=== PATIENT | female | born 1985 | race Caucasian/White ===

== ENCOUNTER 2023-06-29 13:29 | Emergency (ER) | payer OTHER, SELFPAY ==
[2023-06-29 13:49] VITALS: BP 165/74; PULSE 64; RESP 16; TEMP 36.6; O2SAT 99; BMI 31.3
--- NOTE | 2023-06-29 14:09 | DI.RAD.S_ITS ---
PROCEDURE: XR ACUTE ABDOMEN SERIES INDICATIONS: abd pain, ? foreign body. TECHNIQUE: One view chest and two views of the abdomen were acquired. COMPARISON: None. FINDINGS: Surgical changes and devices: None. Chest: Lungs are clear. Heart size is normal. No pleural effusions. No pneumoperitoneum. Abdomen: Scattered fecal residue. No dilated loops of small bowel seen. No suspicious calcifications. Visualized solid organ contours appear normal. Bones: No suspicious bony lesions. IMPRESSION: No radiopaque foreign body. Dictated by: Tera Bishop M.D. on 06/29/2023 at 14:50 Approved by: Tera Bishop M.D. on 06/29/2023 at 14:51
[2023-06-29 14:44] LABS: Add Manual Diff / Slide Review NO; Basophils Absolute Auto 100 /uL (0-100); Basophils Percent Auto 0.9 % (0-2); Eosinophils Absolute Auto 300 /uL (0-450); Eosinophils Percent Auto 3.3 % (2-4); Hematocrit 40.2 % (36-46); Hemoglobin 13.9 g/dL (12.0-16.0); Lymphocytes Absolute Auto 1900 /uL (1100-4500); Lymphocytes Percent Auto 21.9 % (25-40); Mean Corpuscular HGB Conc 34.5 % (30-36); Mean Corpuscular Hemoglobin 31.4 PG (26-34); Mean Corpuscular Volume 91.1 fL (80-100); Monocytes Absolute Auto 500 /uL (0-900); Monocytes Percent Auto 5.8 % (3-14); Neutrophils Absolute Auto 6000 /uL (1500-7000); Neutrophils Percent Auto 68.1 % (50-75); Platelet Count 212 X10^3/uL (150-400); Red Blood Cell Count 4.41 X10^6/uL (4.0-5.2); Red Cell Distribution Width 13.3 % (11.6-14.8); White Blood Cell Count 8.8 X10^3/uL (4.5-11.0)
[2023-06-29 14:53] LABS: Alanine Aminotransferase 18 IU/L (<35); Albumin 4.3 g/dL (3.5-5.0); Albumin Globulin Ratio 1.4 (1.0-2.8); Alkaline Phosphatase 65 U/L (38-126); Aspartate Aminotransferase 25 IU/L (14-36); BUN Creatinine Ratio 24.1 (6-22); Bilirubin Total 0.3 mg/dL (0.2-1.3); Blood Urea Nitrogen 19 mg/dL (7-17); Calcium 9.4 mg/dL (8.4-10.2); Carbon Dioxide 24 mmol/L (22-32); Chloride 106 mmol/L (98-107); Estimated Glomerular Filt Rate > 60 mL/min (>60); Globulin 3.1 g/dL (1.7-4.1); Glucose 90 mg/dL (70-100); HEMOLYSIS 20 (0-50); Lipase 75 U/L (23-300); Potassium 3.9 mmol/L (3.4-5.1); Sodium 138 mmol/L (137-145); Total Protein 7.4 g/dL (6.3-8.2)
--- NOTE | 2023-06-29 17:06 | DI.CT.S_ITS ---
PROCEDURE: CT ABDOMEN PELVIS W CON INDICATIONS: Abdominal pain after swallowing earings TECHNIQUE: After the administration of intravenous contrast, axial sections acquired from the lung bases to the pubic symphysis. Coronal and sagittal reformats were performed. For radiation dose reduction, the following was used: automated exposure control, adjustment of mA and/or kV according to patient size. COMPARISON: None. FINDINGS: Image quality: Excellent. Lung bases: Unremarkable. Heart: No significant findings. ABDOMEN: Liver: Unremarkable. Gallbladder: Unremarkable Biliary ducts: Unremarkable. Pancreas: Unremarkable. Spleen: No splenomegaly Adrenal Glands: Unremarkable. Kidneys and Ureters: Kidneys are symmetric in size and enhancement, and there is no obstructive uropathy. No perinephric inflammatory changes. Ureters are normal in course and caliber. Stomach and Bowel: Stomach, small bowel loops, and colon are unremarkable. Normal appendix. No radiodense foreign bodies identified. Peritoneum: No abnormal intraperitoneal fluid. No free air. Ventral Wall: There is a fat-containing umbilical hernia without acute inflammation. Abdominal Nodes: No retroperitoneal or mesenteric adenopathy by size criteria. Vessels: Aorta and inferior vena cava are normal in size. PELVIS: Pelvic Organs: Unremarkable. Bladder: Unremarkable. Pelvic Nodes: No enlarged lymph nodes. Miscellaneous: No hernias are seen. Bones: Unremarkable. IMPRESSION: CT abdomen and pelvis without acute abnormalities to explain patient's symptoms. No hyperdense foreign bodies identified in the abdomen or pelvis. Dictated by: Fito Francois M.D. on 06/29/2023 at 17:27 Approved by: Fito Francois M.D. on 06/29/2023 at 17:29
--- NOTE | 2023-06-29 17:08 | ED.ABDPAIN ---
HPI - Abdominal Pain <Dinesh Castillo PA-C - Last Filed: 06/29/23 18:00> General Chief Complaint: Abdominal Pain Stated Complaint: swallowed stud earings T-7/abd pain T-2 Time Seen by Provider: 06/29/23 16:56 Source: patient Mode of arrival: Ambulatory History of Present Illness HPI narrative: This is a 37-year-old female presents emergency department after swallowing 2 earrings proximally 5 days ago. Two days ago she began to feel some episodes of sharp intermittent abdominal pain as well as bloating causing her to come to the emergency department as well as some nausea. Denies any vomiting, diarrhea, pelvic symptoms, or any other concerning signs or symptoms. Related Data Home Medications Medication Instructions Recorded Confirmed levothyroxine 88 mcg tablet 88 mcg PO DAILY 06/29/23 06/29/23 venlafaxine 150 mg 150 mg PO DAILY 06/29/23 06/29/23 capsule,extended release 24 hr Allergies Allergy/AdvReac Type Severity Reaction Status Date / Time No Known Drug Allergies Allergy Verified 06/29/23 13:52 Review of Systems <Dinesh Castillo PA-C - Last Filed: 06/29/23 18:00> Review of Systems Narrative: GENERAL: Denies chills, fatigue, malaise, fever, sweats. HEENT: Denies sinus pain, ear pain, sore throat, difficulty swallowing, dizziness. RESPIRATORY: Denies dyspnea, cough, wheezing, hemoptysis, sputum. CARDIOVASCULAR: Denies chest pain, palpitations, orthopnea, edema, GASTROINTESTINAL: Reports nausea and abdominal pain, denies vomiting diarrhea, constipation, melena. : Denies dysuria, frequency, incontinence, hematuria, urinary retention. MUSCULOSKELETAL: denies weakness, joint pain, or bony pain SKIN: Denies rash, skin lesions, or other NEUROLOGIC: Denies weakness, headache, numbness, change in speech, confusion, seizures, incoordination. PSYCHIATRIC: No concerning psychosocial issues. 12 point review of systems is negative except for those stated above Patient History <Dinesh Castillo PA-C - Last Filed: 06/29/23 18:00> Social History Smoking Status: Never smoker Smoking Status: Never smoker alcohol intake frequency: other Substance Use Type: marijuana Exam <OLIVA Perez Last Filed: 06/29/23 18:00> Narrative Exam Narrative: GENERAL: Well-developed patient, in mild distress. HEAD: Atraumatic. Normocephalic. EYES: Pupils equal round and reactive. Extraocular motions intact. No scleral icterus. No injection or drainage. ENT: Nose without bleeding, purulent drainage. Throat without erythema, tonsillar hypertrophy or exudate. Airway patent. NECK: Trachea midline. Non tender CARDIOVASCULAR: Regular rate and rhythm without murmurs, gallops, or rubs. RESPIRATORY: Clear to auscultation. Breath sounds equal bilaterally. No wheezes, rales, or rhonchi. GASTROINTESTINAL: Generalized tenderness to palpation, nondistended EXTREMITIES: No edema or joint tenderness. BACK: Nontender without deformity or crepitance. No flank tenderness. NEURO: AOx3. SKIN: No rash or erythema of visible areas Initial Vital Signs Initial Vital Signs: Vital Signs Temperature 98 F 06/29/23 13:49 Pulse Rate 64 06/29/23 13:49 Respiratory Rate 16 06/29/23 13:49 Blood Pressure 165/74 H 06/29/23 13:49 Pulse Oximetry 99 06/29/23 13:49 Oxygen Delivery Method Room Air 06/29/23 13:49 <DO Josue Srinivasan Last Filed: 06/30/23 09:01> Initial Vital Signs Initial Vital Signs: Vital Signs Temperature 98 F 06/29/23 13:49 Pulse Rate 64 06/29/23 13:49 Respiratory Rate 16 06/29/23 13:49 Blood Pressure 165/74 H 06/29/23 13:49 Pulse Oximetry 99 06/29/23 13:49 Oxygen Delivery Method Room Air 06/29/23 13:49 Course <Dinesh Castillo PA-C - Last Filed: 06/29/23 18:00> Orders Ordered: Discontinued Medications Ondansetron HCl (Ondansetron 4 Mg Odt) 4 mg PO NOW PRN PRN Reason: Nausea And Vomiting Ondansetron HCl (Ondansetron 4 Mg/2 Ml Inj) 4 mg IV NOW PRN PRN Reason: Nausea And Vomiting Vital Signs Vital signs: Vital Signs - 8 hr 06/29/23 13:49 Temperature 98 F Pulse Rate 64 Respiratory Rate 16 Blood Pressure 165/74 H Pulse Oximetry 99 Oxygen Delivery Method Room Air <DO Josue Srinivasan Last Filed: 06/30/23 09:01> Orders Ordered: Discontinued Medications Ondansetron HCl (Ondansetron 4 Mg Odt) 4 mg PO NOW PRN PRN Reason: Nausea And Vomiting Ondansetron HCl (Ondansetron 4 Mg/2 Ml Inj) 4 mg IV NOW PRN PRN Reason: Nausea And Vomiting Vital Signs Vital signs: Vital Signs - 8 hr 06/29/23 13:49 Temperature 98 F Pulse Rate 64 Respiratory Rate 16 Blood Pressure 165/74 H Pulse Oximetry 99 Oxygen Delivery Method Room Air MDM - Abdominal Pain <Dinesh Castillo PA-C - Last Filed: 06/29/23 18:00> Lab Data 06/29/23 14:25 06/29/23 14:25 Labs: Lab Results 06/29/23 Range/Units 14:25 WBC 8.8 (4.5-11.0) X10^3/uL RBC 4.41 (4.0-5.2) X10^6/uL Hgb 13.9 (12.0-16.0) g/dL Hct 40.2 (36-46) % MCV 91.1 (80-100) fL MCH 31.4 (26-34) PG MCHC 34.5 (30-36) % RDW 13.3 (11.6-14.8) % Plt Count 212 (150-400) X10^3/uL Neut % (Auto) 68.1 (50-75) % Lymph % (Auto) 21.9 L (25-40) % Montgomery % (Auto) 5.8 (3-14) % Eos % (Auto) 3.3 (2-4) % Baso % (Auto) 0.9 (0-2) % Neut # (Auto) 6000 (1498-7259) /uL Lymph # (Auto) 1900 (0393-1307) /uL Montgomery # (Auto) 500 (0-900) /uL Eos # (Auto) 300 (0-450) /uL Baso # (Auto) 100 (0-100) /uL Sodium 138 (137-145) mmol/L Potassium 3.9 (3.4-5.1) mmol/L Chloride 106 (98-107) mmol/L Carbon Dioxide 24 (22-32) mmol/L BUN 19 H (7-17) mg/dL Creatinine 0.79 (0.52-1.04) mg/dL Estimated GFR > 60 (>60) mL/min BUN/Creatinine Ratio 24.1 H (6-22) Glucose 90 (70-100) mg/dL Calcium 9.4 (8.4-10.2) mg/dL Total Bilirubin 0.3 (0.2-1.3) mg/dL AST 25 (14-36) IU/L ALT 18 (<35) IU/L Alkaline Phosphatase 65 (38-126) U/L Total Protein 7.4 (6.3-8.2) g/dL Albumin 4.3 (3.5-5.0) g/dL Globulin 3.1 (1.7-4.1) g/dL Albumin/Globulin Ratio 1.4 (1.0-2.8) Lipase 75 (23-300) U/L Point of care testing: Point of Care Testing Test Results Negative Urine Dip Bedside Urine Glucose Negative Bedside Urine Bilirubin - Negative Bedside Urine Ketone - Negative Urine Specific Penfield 1.015 Bedside Urine Occult Blood - Negative Bedside Urine pH 7.5 Bedside Urine Protein - Negative Bedside Urine Urobilinogen - Negative Bedside Urine Nitrite - Negative Bedside Urine Leukocytes - Negative Esterase Imaging Data Abdominal x-ray: Radiologist's Impression: [address] [address] XRay Report Signed Patient: Samantha Mckoy MR#: [id number] : 1985 Acct:[id number] Age/Sex: 37 / F Date of Service: 06/29/23 Loc: ED Accession Number: [id number] Procedure: XR acute abdomen series Ordering Provider: Zeus Fraire D.O. PROCEDURE: XR ACUTE ABDOMEN SERIES INDICATIONS: abd pain, ? foreign body. TECHNIQUE: One view chest and two views of the abdomen were acquired. COMPARISON: None. FINDINGS: Surgical changes and devices: None. Chest: Lungs are clear. Heart size is normal. No pleural effusions. No pneumoperitoneum. Abdomen: Scattered fecal residue. No dilated loops of small bowel seen. No suspicious calcifications. Visualized solid organ contours appear normal. CT scan - abdomen/pelvis: Radiologist's Impression: [address] [address] [address] Scan Report Signed Patient: Samantha Mckoy MR#: [id number] : 1985 Acct:[id number] Age/Sex: 37 / F Date of Service: 06/29/23 Loc: ED Accession Number: [id number] Procedure: CT abdomen pelvis w con Ordering Provider: Dinesh Castillo P.A-C PROCEDURE: CT ABDOMEN PELVIS W CON INDICATIONS: Abdominal pain after swallowing earings TECHNIQUE: After the administration of intravenous contrast, axial sections acquired from the lung bases to the pubic symphysis. Coronal and sagittal reformats were performed. For radiation dose reduction, the following was used: automated exposure control, adjustment of mA and/or kV according to patient size. COMPARISON: None. FINDINGS: Image quality: Excellent. Lung bases: Unremarkable. Heart: No significant findings. ABDOMEN: Liver: Unremarkable. Gallbladder: Unremarkable Biliary ducts: Unremarkable. Pancreas: Unremarkable. Spleen: No splenomegaly Adrenal Glands: Unremarkable. Kidneys and Ureters: Kidneys are symmetric in size and enhancement, and there is no obstructive uropathy. No perinephric inflammatory changes. Ureters are normal in course and caliber. Stomach and Bowel: Stomach, small bowel loops, and colon are unremarkable. Normal appendix. No radiodense foreign bodies identified. Peritoneum: No abnormal intraperitoneal fluid. No free air. Ventral Wall: There is a fat-containing umbilical hernia without acute inflammation. Abdominal Nodes: No retroperitoneal or mesenteric adenopathy by size criteria. Vessels: Aorta and inferior vena cava are normal in size. PELVIS: Pelvic Organs: Unremarkable. Bladder: Unremarkable. Pelvic Nodes: No enlarged lymph nodes. Miscellaneous: No hernias are seen. Bones: Unremarkable. IMPRESSION: CT abdomen and pelvis without acute abnormalities to explain patient's symptoms. No hyperdense foreign bodies identified in the abdomen or pelvis. Dictated by: Fito Francois M.D. on 06/29/2023 at 17:27 Approved by: Fito Francois M.D. on 06/29/2023 at 17:29 MDM Narrative Medical decision making narrative: MDM * differential diagnosis includes but not limited to perforated intestine, small-bowel obstruction, gastroenteritis * Prior records reviewed: Patient has not been here to the emergency department the past. * My lab interpretation: Lab work unremarkable. No evidence of leukocytosis or anemia. * My imgaing interpretation: Abdominal x-ray and CT showed no evidence of perforation or foreign body. * Clinical Decision Rules/Scores evaluated: None * Independent discussions with: None ED Course: This is a 37-year-old female presenting to the emergency department due to abdominal pain after swallowing earrings about [address] abdomen and pelvis was unremarkable and labs were not concerning. No evidence of perforation. Discussed with the patient that your things may likely passed over time. Recommended symptomatic management. Shared Decision Making: Discussed plan with patient who is comfortable with the plan. Social Considerations: None Disposition: Discharged to home <Zeus Fraire DO - Last Filed: 06/30/23 09:01> Lab Data Labs: Lab Results 06/29/23 Range/Units 14:25 WBC 8.8 (4.5-11.0) X10^3/uL RBC 4.41 (4.0-5.2) X10^6/uL Hgb 13.9 (12.0-16.0) g/dL Hct 40.2 (36-46) % MCV 91.1 (80-100) fL MCH 31.4 (26-34) PG MCHC 34.5 (30-36) % RDW 13.3 (11.6-14.8) % Plt Count 212 (150-400) X10^3/uL Neut % (Auto) 68.1 (50-75) % Lymph % (Auto) 21.9 L (25-40) % Montgomery % (Auto) 5.8 (3-14) % Eos % (Auto) 3.3 (2-4) % Baso % (Auto) 0.9 (0-2) % Neut # (Auto) 6000 (9134-6305) /uL Lymph # (Auto) 1900 (5657-4433) /uL Montgomery # (Auto) 500 (0-900) /uL Eos # (Auto) 300 (0-450) /uL Baso # (Auto) 100 (0-100) /uL Sodium 138 (137-145) mmol/L Potassium 3.9 (3.4-5.1) mmol/L Chloride 106 (98-107) mmol/L Carbon Dioxide 24 (22-32) mmol/L BUN 19 H (7-17) mg/dL Creatinine 0.79 (0.52-1.04) mg/dL Estimated GFR > 60 (>60) mL/min BUN/Creatinine Ratio 24.1 H (6-22) Glucose 90 (70-100) mg/dL Calcium 9.4 (8.4-10.2) mg/dL Total Bilirubin 0.3 (0.2-1.3) mg/dL AST 25 (14-36) IU/L ALT 18 (<35) IU/L Alkaline Phosphatase 65 (38-126) U/L Total Protein 7.4 (6.3-8.2) g/dL Albumin 4.3 (3.5-5.0) g/dL Globulin 3.1 (1.7-4.1) g/dL Albumin/Globulin Ratio 1.4 (1.0-2.8) Lipase 75 (23-300) U/L Point of care testing: Point of Care Testing Test Results Negative Urine Dip Bedside Urine Glucose Negative Bedside Urine Bilirubin - Negative Bedside Urine Ketone - Negative Urine Specific [place] 1.015 Bedside Urine Occult Blood - Negative Bedside Urine pH 7.5 Bedside Urine Protein - Negative Bedside Urine Urobilinogen - Negative Bedside Urine Nitrite - Negative Bedside Urine Leukocytes - Negative Esterase Discharge Plan Departure Patient Disposition: Home Clinical Impression: Abdominal pain Instructions: DI for Abdominal Pain-Adult Activity Restrictions/Additional Instructions: Thank you for coming to the [facility] Emergency Department today. Your CT showed no evidence of abdominal perforation and did not show any evidence of the earrings. These should pass over the next couple of days. Area of recommend ibuprofen and Tylenol for the pain. I hope you feel better soon. Please follow up with your primary care provider within a week if your symptoms continue. If you do not have a primary care provider please contact the [facility] Resource line at [phone]. They will ask some questions about your medical history and help you get set up with a provider in the community. Prescriptions: No Action levothyroxine 88 mcg tablet 88 mcg PO DAILY venlafaxine 150 mg capsule,extended release 24hr 150 mg PO DAILY Stand Alone Forms: Patient Portal/API ED Sign-out <Zeus Fraire DO - Last Filed: 06/30/23 09:01> Cosign ED Attending Elio Attestation: I was immediately available in the department for consultation. Documentation has been reviewed. I agree with assessment and plan.
[2023-06-29 18:08] VITALS: BP 144/67; PULSE 63; RESP 18; TEMP 36.8; O2SAT 98
== END 2023-06-29 18:10 | disposition home or self-care (01) ==
PROVIDERS: Emergency Medicine; Emergency Provider Physician Assistant Medical
DX: R10.9 Unspecified abdominal pain (principal)
CPT/HCPCS: 36415; 74022; 74177; 80053; 81003; 81025; 83690; 85025; 99284